=== PATIENT | female | born 2000 ===

== ENCOUNTER 2024-01-14 14:40 | Emergency (ER) | payer MEDICAID, SELFPAY ==
--- NOTE | ~2024-01-14 | CT_ITS ---
EXAMINATION: CT ABDOMEN AND PELVIS WITHOUT CONTRAST CLINICAL INFORMATION: Right flank pain. Dysuria. Hematuria. Vomiting. COMPARISON: None available. TECHNIQUE: Multidetector volumetric imaging was performed from the superior aspect of the liver through the pubic symphysis. Sagittal and coronal reformatted images were obtained on the technologist's workstation. This CT examination was performed using dose optimization techniques as appropriate, variously including the following: *Automated exposure control *Adjustment of mA and/or kV according to patient size (this includes techniques or standardized protocols for targeted exams where dose is matched to indication/reason for exam; i.e. extremities or head) *Use of iterative reconstruction technique DLP: 385 mGy-cm FINDINGS: There is motion limiting the study. LUNG BASES: The visualized lung bases are unremarkable. LIVER, GALLBLADDER, AND BILIARY TREE: The liver is normal in size, shape, and attenuation. No focal hepatic lesion or biliary ductal dilatation is present. The gallbladder is unremarkable with no evidence of radiopaque gallstones, gallbladder wall thickening, or obvious pericholecystic inflammatory changes. PANCREAS: Unremarkable. SPLEEN: Unremarkable. ADRENAL GLANDS: Unremarkable. KIDNEYS AND URETERS: The kidneys are normal in size, shape, and attenuation. No hydronephrosis, hydroureter, or calculi seen. No perinephric stranding. BLADDER: Unremarkable. GASTROINTESTINAL TRACT: The small and large bowel are unremarkable. The appendix is unremarkable. ABDOMINAL WALL: No significant hernia is appreciated. LYMPH NODES: Normal. VASCULAR: Unremarkable. PELVIC VISCERA: Uterus is anteverted. Right adnexal 3 cm cyst. No follow-up imaging recommended. Small volume of fluid in the cul-de-sac. OSSEOUS STRUCTURES: Unremarkable. CT/CT abdomen pelvis wo IV con IMPRESSION: No acute abnormality CT scan abdomen pelvis. Normal kidneys, ureter and bladder. Fleischner guidelines were followed.
[2024-01-14 15:32] VITALS: BP 126/60; PULSE 77; RESP 18; TEMP 36.1; O2SAT 100; BMI 21.0
[2024-01-14 15:57] LABS: MANUAL DIFF FLAG NO
[2024-01-14 15:58] LABS: Basophils Percent Auto 0.3 % (0-2); Eosinophils Absolute Auto 0.1 X10*3/uL (0.0-0.4); Hematocrit 38.8 % (37.0-47.0); Hemoglobin 13.4 g/dl (12.0-16.0); Imm Gran Abs Auto 0.02 X10*3/uL (0.00-0.03); Imm Gran Pct Auto 0.2 % (0.0-0.4); Lymphocytes Absolute Auto 2.3 X10*3/uL (1.2-4.9); Lymphocytes Percent Auto 24.7 % (20-40); Mean Corpuscular HGB Conc 34.5 g/dl (31.0-35.0); Mean Corpuscular Hemoglobin 29.1 pg (27.0-33.0); Mean Corpuscular Volume 84.2 fL (80.0-98.0); Mean Platelet Volume 10.2 fL (9.4-12.3); Monocytes Absolute Auto 0.8 X10*3/uL (0.1-1.2); Monocytes Percent Auto 8.9 % (2-11); Neutrophils Absolute Auto 5.9 x10*3/uL (2.0-8.3); Neutrophils Percent Auto 64.9 % (45-73); Platelet Count 225 X10*3/uL (160-400); Red Blood Count 4.61 X10*6/uL (4.20-5.50); Red Cell Distribution Width 12.2 % (11.0-16.0); White Blood Count 9.1 X10*3/uL (4.8-10.8)
[2024-01-14 15:59] LABS: Appearance Urine Clear; Color Urine Yellow; Glucose Urine UA Negative (Negative); Leukocyte Esterase Urine Trace (Negative); Nitrite Urine Negative (Negative); Specific Gravity - Urine 1.025 (1.005-1.025); UMIC TRIGGER UACC YES; Urine Blood Trace (Negative); Urine Ketones Negative (Negative); Urine Protein Trace mg/dL (Neg-Trace)
[2024-01-14 16:04] LABS: Bacteria Urine 1+ (None Seen); Hyaline Casts Urine 0-2 /LPF (0-2); UACC Culture Trigger YES
[2024-01-14 16:15] LABS: Alanine Aminotransferase 20 U/L (0-31); Albumin Level 4.3 g/dL (3.5-5.0); Alkaline Phosphatase 63 U/L (39-117); Anion Gap 12 (12-20); Aspartate Amino Transferase 19 U/L (5-31); Bilirubin Total 1.1 mg/dL (0.0-1.0); Blood Urea Nitrogen 17 mg/dL (9-16); Calcium 9.1 mg/dL (8.4-10.2); Carbon Dioxide 22 mmol/L (22-29); Chloride 108 mmol/L (96-108); Creatinine Clr Calc Pharmacy 84.2; Estimated Glomerular Filt Rate > 60; Glucose Random 84 mg/dL (60-115); Potassium 4.2 mmol/L (3.3-5.1); Sodium 138 mmol/L (135-145); Total Protein 7.3 g/dL (6.5-8.0)
[2024-01-14 20:21] VITALS: BP 122/59; PULSE 61; RESP 16; TEMP 36.9; O2SAT 100
--- NOTE | 2024-01-14 20:30 | ED_ITS ---
HPI - Female Genitourinary General Chief complaint: Urogenital-Female Stated complaint: Pain upon urination, back pain Time Seen by Provider: 01/14/24 19:31 Source: patient Mode of arrival: ambulatory Limitations: language barrier (Uzbek-speaking coal grader utilized) History of Present Illness HPI Narrative: Patient is a 23 old female who presents to the emergency department for evaluation of concern for urinary tract infection. Reports a urinary tract infection approximately 2 years ago. Her symptoms began approximately 3 days ago, she took 2 doses of ?tetracycline?, an antibiotic that she purchased from her home country; [facility], without any improvement in her symptoms. She is also experiencing urinary frequency, nausea, a single episode of vomiting last night, flank pain, and small amounts of gross hematuria. She reports in the past she is never experienced the flank pain vomiting or hematuria with her prior infections. She denies any history of nephrolithiasis. She denies possibility of , reports having Nexplanon implanted and last menstrual period was 2 days ago. She denies fevers, chills, abdominal pain, vaginal discharge, concern for sexually transmitted infections. Related Data Previous Rx's ?Medication ?Instructions ?Recorded cephalexin 500 mg capsule 500 mg PO BID #20 caps 01/14/24 Allergies Allergy/AdvReac Type Severity Reaction Status Date / Time No Known Allergies Allergy Verified 01/14/24 15:35 Review of Systems 2 Review of Systems: Yes all other systems are reviewed and are negative PMFSH Past Medical History Attestation statement: The following information was validated with the patient. Source: old records reviewed Social History Social History Unable to assess alcohol history related to: Unknown Smoked in Last 30 Days: No Use of substances other than those prescribed or required for medical reasons: Unknown Advance Directives: No Advance Directives Information Provided: No Do you have a plan to hurt others: No Plan Patient : No Physical Exam 2 Vital Signs: Vital Signs: Last Vital Signs Temp 98.4 F 01/14/24 20:21 Pulse 61 01/14/24 20:21 Resp 16 01/14/24 20:21 BP 122/59 L 01/14/24 20:21 Pulse Ox 100 01/14/24 20:21 O2 Del Method Room Air 01/14/24 20:21 BMI result Body Mass Index 21.0 Appearance: Alert.?Oriented to person, place and time. No acute distress.?Normal affect. Eyes: Pupils equal, round and reactive to light.? ENT: Pharynx normal.?? Neck: Normal inspection.? Neck supple.?? CVS: Heart sounds normal. Normal heart rate and rhythm.? Pulses normal.?? Respiratory: No respiratory distress.? Lung sounds clear to auscultation bilaterally?? Abdomen: Soft and non-tender. Normoactive bowel sounds. Positive right CVA tenderness?? Skin: Skin warm and dry.? Normal skin color.? Extremities: No lower extremity edema.? Neuro: Moves all extremities spontaneously. Sensation intact bilaterally. Ambulates with normal steady gait. Course Reevaluation(s) Reevaluation #1: CT of the abdomen and pelvis without acute pathology. Will discharge patient home with course of antibiotics for management urinary tract infection, small early pyelonephritis. Discussed strict return precautions. All questions answered. Stable for discharge. Medications Administered Discontinued Medications Generic Name Dose Route Start Last Admin Trade Name Freq PRN Reason Stop Dose Admin Ibuprofen 600 mg 01/14/24 20:20 01/14/24 20:53 Ibuprofen 600 Mg Tablet PO 01/14/24 20:21 600 mg ONCE ONE Administration Medical Decision Making Medical Decision Making [facility] Narrative: Patient is a 23-year-old female with past medical history of urinary tract infection presenting to emergency department for evaluation of symptoms with nausea vomiting and flank pain as per HPI. Overall she appears well, nontoxic, afebrile. She is without tachycardia tachypnea or hypoxia. Her abdominal examination is benign. She does have a mild right-sided tenderness to the CVA, reviewed labs and urinalysis obtained prior to my assumption of care. She is without leukocytosis or anemia, no electrolyte derangement, no ANDREY, transaminases within normal range. HCG is negative. Urinalysis with microscopic hematuria and pyuria, concerning for urinary tract infection versus pyelonephritis versus ureteral calculi versus hydronephrosis. She is amenable to ibuprofen administration. Will obtain CT of the abdomen pelvis for further evaluation. At this time she is tolerating oral intake Differential Diagnosis Differential Diagnoses: The differential diagnosis associated with the presentation includes (See narrative above) Admission/Observation Consideration of admission/observation: Escalation of care including admission/observation considered (See narrative above) Lab Data [facility] Lab Attestation statement: I reviewed the patient's lab results. (See narrative above) 01/14/24 15:52 01/14/24 15:52 Labs: Lab Results 01/14/24 Range/Units 15:52 WBC 9.1 (4.8-10.8) X10*3/uL RBC 4.61 (4.20-5.50) X10*6/uL Hgb 13.4 (12.0-16.0) g/dl Hct 38.8 (37.0-47.0) % MCV 84.2 (80.0-98.0) fL MCH 29.1 (27.0-33.0) pg MCHC 34.5 (31.0-35.0) g/dl RDW 12.2 (11.0-16.0) % Plt Count 225 (160-400) X10*3/uL MPV 10.2 (9.4-12.3) fL Immature Gran % (Auto) 0.2 (0.0-0.4) % Neut % (Auto) 64.9 (45-73) % Lymph % (Auto) 24.7 (20-40) % Jenkins % (Auto) 8.9 (2-11) % Eos % (Auto) 1.0 (0-4) % Baso % (Auto) 0.3 (0-2) % Lymph # (Auto) 2.3 (1.2-4.9) X10*3/uL Jenkins # (Auto) 0.8 (0.1-1.2) X10*3/uL Eos # (Auto) 0.1 (0.0-0.4) X10*3/uL Baso # (Auto) 0.0 (0.0-0.2) X10*3/uL Abs Immat Gran (auto) 0.02 (0.00-0.03) X10*3/uL Absolute Neuts (auto) 5.9 (2.0-8.3) x10*3/uL Absolute Nucleated RBC 0.000 (0.0-0.012) X10*3/uL Nucleated RBC % (auto) 0.0 (0.0-0.2) /100WBC Sodium 138 (135-145) mmol/L Potassium 4.2 (3.3-5.1) mmol/L Chloride 108 (96-108) mmol/L Carbon Dioxide 22 (22-29) mmol/L Anion Gap 12 (12-20) BUN 17 H (9-16) mg/dL Creatinine 0.74 (0.5-1.4) mg/dL Estim Creat Clear Calc 84.2 Estimated GFR > 60 Random Glucose 84 (60-115) mg/dL Calcium 9.1 (8.4-10.2) mg/dL Total Bilirubin 1.1 H (0.0-1.0) mg/dL AST 19 (5-31) U/L ALT 20 (0-31) U/L Alkaline Phosphatase 63 (39-117) U/L Total Protein 7.3 (6.5-8.0) g/dL Albumin 4.3 (3.5-5.0) g/dL Beta HCG, Quant < 2 mIU/mL Urine Color Yellow Urine Appearance Clear Urine pH 7.0 (5.0-9.0) Ur Specific [place] 1.025 (1.005-1.025) Urine Protein Trace (Neg-Trace) mg/dL Urine Glucose (UA) Negative (Negative) mg/dL Urine Ketones Negative (Negative) mg/dL Urine Blood Trace H (Negative) Urine Nitrite Negative (Negative) Ur Leukocyte Esterase Trace H (Negative) Urine RBC 6-10 H (0-2) /HPF Urine WBC 11-20 H (0-5) /HPF Ur Squamous Epith Cells 6-10 (0-2) /HPF Urine Bacteria 1+ (None Seen) Hyaline Casts 0-2 (0-2) /LPF Independent Interpretation I performed an independent interpretation of an: CT Scan (No nephrolithiasis, no hydronephrosis) Radiology Impression Discussion of test interpretation with radiology: I have reviewed the radiologist's reading. Radiologist Impression: CT/CT abdomen pelvis wo IV con IMPRESSION: No acute abnormality CT scan abdomen pelvis. Normal kidneys, ureter and bladder. Independent Historian Clinical information obtained from an independent historian. History obtained from or confirmed by: Spouse (Present who confirms history) Prescription Management I considered prescription management with: Antibiotic Discharge Plan Discharge Clinical Impression: Urinary tract infection Patient Disposition: Home, Self-Care Instructions: Urinary Tract Infection in Women (ED) Additional Instructions: Your CT scan today does not show any evidence of kidney stone or significant changes to kidneys. This is very reassuring. A prescription for an antibiotic was sent to your pharmacy to treat urinary tract infection. Please be sure that you are staying well hydrated, drinking plenty of fluids. You should follow-up with your primary care provider within the next 3 days. You can return back to emergency department any new or worsening symptoms or concerns. Prescriptions: New cephalexin 500 mg capsule 500 mg PO BID Qty: 20 0RF Referrals: Physician,None [Primary Care Provider] - Print Language: Uzbek
[2024-01-14 20:53] LABS: HCG Quantitative < 2 mIU/mL
[2024-01-14] MEDS: Ibuprofen 600 MG TABLET PO (20:53)
[2024-01-14 22:48] VITALS: BP 118/68; PULSE 61; RESP 18; TEMP 37; O2SAT 100
[2024-01-14 22:53] VITALS: BP 118/68; PULSE 61; RESP 18; TEMP 37; O2SAT 100
== END 2024-01-14 22:53 | disposition home or self-care (01) ==
PROVIDERS: Nurse Practitioner Family; Emergency Provider Emergency Medicine
DX: N39.0 Urinary tract infection, site not specified (principal); R10.9 Unspecified abdominal pain
CPT/HCPCS: 36415; 74176; 80053; 81001; 81003; 84702; 85025; 87086; 99284

== ENCOUNTER 2025-06-17 10:03 | Outpatient (REF) | payer MEDICAID, SELFPAY ==
--- OUTSIDE RECORDS SUMMARY | 2025-06-15 14:00 | XMS_ITS | Encounter Summary ---
Author Organization [id number] Address [address] [place] [address] Care Team Providers Care Warehouse Insulation Worker Name Role Phone Esme Clarosily GOSIA Primary Care Provider [phone] Reason for Visit * Reason Comments Scaling And Root Planing UR, LR Encounter Details Date Type Department Care Team ([facility] st Contact Info) Description 06/15/2025 2:00 PM EDT Office Visit [facility] [address] [place] [address] Cathi Shaw Dental plaque (Primary Dx); Subgingival dental calculus Social History Tobacco Use Types Packs/Day Years Used Date Smoking Tobacco: Never Smokeless Tobacco: Never Alcohol Use Standard Drinks/Week Comments Never 0 (1 standard drink = 0.6 oz pur e alcohol) Comments Unknown Sex and Gender Information Value Date Recorded Sex Assigned at Female 06/23/2024 2:31 PM EDT Legal Sex Female 2:40 AM EST Gender Identity Female 06/23/2024 2:31 PM EDT Sexual Orientation Straight 06/23/2024 2: 31 PM EDT documented as of this encounter Last Filed Vital Signs Vital Sign Reading Time Taken Comments Blood Pressure 120/70 06/15/2025 2:00 PM EDT Pulse - - Temperature - - Respiratory Rate - - Oxygen Saturation - - Inhaled Oxygen Concentration - - Weight - - Height - - Body Mass Index - - documented in this encounter Progress Notes * Cathi Shaw - 06/15/2025 2:00 PM EDT Patient ID: Mariam Carrero is a 25 y.o. female. Time Out: Timeout Date: 06/15/25, Timeout Time: 1359 (Dental SRP Adult) Location: [facility] Tooth: UR and LR Procedure: Scaling and Root Planing Verified the above with patient, internal medicine physician assistant, and provider. Confirmed via patient's chart, intraorally and by radiographs. Emission Specialist: not applicable Medical Hx: Vitals: Blood pressure 120/70. Medications, Med Hx reviewed with patient and updated in chart. Treatment Provided Dental procedures in this visit D4342 - PERIODONTAL SCALING AND ROOT PLANING - 1 TO 3 TEETH PER QUADRANT LR (Completed) Service provider: Cathi Shaw Billing provider: Jigar Fair DDS D4342 - PERIODONTAL SCALING AND ROOT PLANING - 1 TO 3 TEETH PER QUADRANT UR (Completed) Service provider: Cathi Shaw Billing provider: Jigar Fair DDS D1330 - ORAL HYGIENE INSTRUCTIONS (Completed) Service provider: Cathi Shaw Billing provider: Jigar Fair DDS [id number] - CASE PRESENTATION, DETAILED AND EXTENSIVE TREATMENT PLANNING (Completed) Service provider: Cathi Shaw Billing provider: Jigar Fair DDS Topical: 20% Benzocaine Anesthesia: 0 Number of Cartridges: 0 Injection Type: N/A Confirmed profound anesthesia. Oral Cancer Screening: No lesions Head/Neck Exam: No Lesions Instruments Used: Ultrasonic Scalers, Hand Scalers, and floss Fluoride: N/A Calculus: Moderate, Generalized, and Subgingival Plaque: Light and Generalized Stain: None Bleeding: Moderate and Generalized Gingiva: Edematous and Erythematous [place]: Poor Oral hygiene instructions provided to patient including brushing technique and flossing. Recommendations: [place] two times daily, modified blanco technique, Floss daily, Electric toothbrush, Soft bristle toothbrush, [place] Tongue, Anti-sensitivity toothpaste Recall Frequency: 6 mo NV: 6mrc Hygienist: Catih Shaw RDH documented in this encounter Plan of Treatment Upcoming Encounters Date Type Department Care Team (Late st Contact Info) Description 12/21/2025 10:15 AM EDT Office Visit [facility] [address] [place] [address] Cathi Shaw Scheduled Orders Name Type Priority Associated Diagnoses Orde r Schedule PROPHYLAXIS - ADULT Dental Routine 1 Occ urrences starting 06/15/2025 documented as of this encounter Procedures Procedure Name Priority Date/Time Associated Diagnosis Comments UR PERIODONTAL SCALING AND ROOT PLANING - 1 TO 3 TEETH PER QUADRANT Routine 06/15/2025 2:00 PM EDT Dental plaque Subgingival dental calculus LR PERIODONTAL SCALING AND ROOT PLANING - 1 TO 3 TEETH PER QUADRANT Routine 06/15/2025 2:00 PM EDT Dental plaque Subgingival dental calculus ORAL HYGIENE INSTRUCTIONS Routine 06/15/2025 2:00 PM EDT Dental plaque Subgingival dental calculus CASE PRESENTATION, DETAILED AND EXTENSIVE TREATMENT PLANNING Routine 06/15/2025 2:00 PM EDT documented in this encounter Visit Diagnoses Diagnosis Dental plaque- Primary Accretions on teeth Subgingival dental calculus Accretions on teeth documented in this encounter Care Teams Warehouse Insulation Worker Relationship Specialty Start Date End Date Yumiko Claros NP [address] [place] [id number] PCP - General Family Medicine 03/30/25 documented as of this encounter
--- OUTSIDE RECORDS SUMMARY | 2025-06-17 09:00 | XMS_ITS | Encounter Summary ---
Author Organization [employer] Address [address] [place] [address] [address] [place] [address] Care Team Providers Care Hot Mill Roller Name Role Phone Yumiko Claros NP Primary Care Provider [phone] Reason for Referral * Consultation (Routine) - Pending Review Specialty Diagnoses / Procedures Referred By Ghislaine thomas Referred To Contact Physical Therapy Diagnoses Chronic low back pain, unspecified back pain laterality, unspecified whether sciatica present Chronic neck and back pain Yumiko Claros NP [address] [place] [address] Phone: tel: fax: Referral ID Status Reason Start Date Expiration Date Visits Requested Visits Authorized [id number] Pending Review Specialty Services Required 06/17/2025 06/17/2026 1 1 * Consultation (Routine) - Authorized Specialty Diagnoses / Procedures Referred By Ghislaine thomas Referred To Contact Behavioral Health Diagnoses Routine general medical examination at a health care facility Procedures Referral to Behavioral Health Yumiko Claros NP [address] [place] [address] Phone: tel: fax: Referral ID Status Reason Start Date Expiration Date Visits Requested Visits Authorized [id number] Authorized Specialty Services Required 06/17/2025 06/17/2026 1 1 Reason for Visit * Reason Comments Transfer patient Encounter Details Date Type Department Care Team ([facility] st Contact Info) Description 06/17/2025 9:00 AM EDT Office Visit [facility] MEDICINE [address] [place] [address] Yumiko Claros, GOSIA [address] [place] [address] Routine general medical examination at a health care facility (Primary Dx); Exposure to communicable disease; Encounter for immunization; Chronic low back pain, unspecified back pain laterality, unspecified whether sciatica present; Chronic neck and back pain; Ganglion cyst Social History Tobacco Use Types Packs/Day Years Used Date Smoking Tobacco: Never Smokeless Tobacco: Never Alcohol Use Standard Drinks/Week Comments Never 0 (1 standard drink = 0.6 oz pur e alcohol) Depression Answer Date Recorded Patient Health Questionnaire-9 Score 11 06/17/2025 Patient Health Questionnaire-9 Score 11 06/17/2025 Last PHQ-9: Questionnaire Data Not on file 1 Housing Stability Answer Date Recorded What is your housing situation today? I have amena brett 06/17/[address] you li ve. Do you have problems with any of the following? None of the above 06/17/2025 Food Insecurity Answer Date Recorded Within the past 12 months, y ou worried that your food would run out before you got money to buy more: Never True 06/17/2025 Within the past 12 months,th e food you bought just didn't last and you didn't have enough money to get more: Never True 11/2024 Transportation Answer Date Recorded In the past 12 months, has l ack of transportation kept you from medical appts, meetings, work or from getting things needed for daily living? No 06/17/2025 Utilities Answer Date Recorded In the past 12 months, has t he electric, gas, oil or water company threatened to shut off services in your home? No 06/17/2025 Depression Answer Date Recorded Patient Health Questionnaire-2 Score 2 06/17/2025 Internet Access Answer Date Recorded Internet Access Q1 Yes 06/17/2025 Internet Access Q2 Not on file 06/17/2025 Comments No Sex and Gender Information Value Date Recorded Sex Assigned at Female 06/23/2024 2:31 PM EDT Legal Sex Female 2:40 AM EST Gender Identity Female 06/23/2024 2:31 PM EDT Sexual Orientation Straight 06/23/2024 2: 31 PM EDT documented as of this encounter Last Filed Vital Signs Vital Sign Reading Time Taken Comments Blood Pressure 122/74 06/17/2025 9:04 AM EDT Pulse 80 06/17/2025 9:04 AM EDT Temperature 36.8 C (98.2 F) 06/17/2025 9:04 AM EDT Respiratory Rate 16 06/17/2025 9:04 AM EDT Oxygen Saturation - - Inhaled Oxygen Concentration - - Weight 52.7 kg (116 lb 3.2 oz) 06/17/2025 9:04 A M EDT Height 154.6 cm (5' 0.85 ) 06/17/2025 9:04 AM ED T Body Mass Index 22.07 06/17/2025 9:04 AM EDT documented in this encounter Functional Status * Over the past 2 weeks, how often have you been bothered by any of the following problems? Question Answer Date of Assessment Author Patient Health Questionnaire-2 Score 2 06/17/2025 9:12 AM EDT Allison Gunn MA * Little interest or pleasure in doing things Answer Date of Assessment Author Several days 06/17/2025 9:12 AM EDT Allison Dow MA * Feeling down, depressed, or hopeless Answer Date of Assessment Author Several days 06/17/2025 9:12 AM EDT Allison Dow MA * Trouble falling or staying asleep, or sleeping too much Answer Date of Assessment Author Several days 06/17/2025 9:12 AM EDT Allison Dow MA * Feeling tired or having little energy Answer Date of Assessment Author More than half the days 06/17/2025 9:12 AM EDT Allison Morris MA * Poor appetite or overeating Answer Date of Assessment Author Nearly every day 06/17/2025 9:12 AM EDT Allison Berumen MA * Feeling bad about yourself - or that you are a failure or have let yourself or your family down Answer Date of Assessment Author Several days 06/17/2025 9:12 AM EDT Allison Dow MA * Trouble concentrating on things, such as reading the newspaper or watching television Answer Date of Assessment Author Several days 06/17/2025 9:12 AM Allison Duarte MA * Moving or speaking so slowly that other people could have noticed? Or the opposite - being so fidgety or restless that you have been moving around a lot more than usual. Answer Date of Assessment Author Not at all 06/17/2025 9:12 AM Allison Duarte MA * Thoughts that you would be better off or hurting yourself in some way Answer Date of Assessment Author Several days 06/17/2025 9:12 AM Allison Duarte MA * Patient Health Questionnaire-9 Score Answer Date of Assessment Author 11 06/17/2025 9:12 AM Allison Duarte MA * How difficult have these problems made it for you to do your work, take care of things at home, or get along with other people? Answer Date of Assessment Author Somewhat difficult 06/17/2025 9:12 AM EDT Allison Frey MA * Over the last 2 weeks, how often have you been bothered by any of the following problems? Question Answer Date of Assessment Author Feeling nervous, anxious, or on edge 3 06/17/2025 9:12 AM Allison Scott MA Not being able to stop or control worrying 3 06/17/2025 9:12 AM Allison Scott MA Worrying too much about different things 2 06/17/2025 9:12 AM Allison Scott MA Trouble relaxing 3 06/17/2025 9:12 AM EDT Allison Morris MA Being so restless that it is hard to sit still 3 06/17/2025 9:12 AM Allison Scott MA Becoming easily annoyed or irritable 2 06/17/2025 9:12 AM Allison Scott MA Feeling afraid as if something awful might happen 2 06/17/2025 9:12 AM EDT Allison Berumen MA NIKIA-7 Total Score 18 06/17/2025 9:12 AM EDT Allison Gunn MA documented as of this encounter Miscellaneous Notes * Assessment & Plan Note - Yumiko Claros NP - 06/17/2025 9:00 AM EDTAssociated Problem(s): Routine general medical examination at a health care facility Orders: Referral to Behavioral Health; Future HIV-1/2 Antigen and Antibodies, Fourth Generation, with Reflexes; Future Hepatitis C Antibody with Reflex to HCV, RNA, Quantitative, Real-Time PCR; Future RPR (Monitor) with Reflex to Titer; Future Chlamydia/N. Gonorrhoeae, PCR, Urine * Assessment & Plan Note - Yumiko Claros NP - 06/17/2025 9:00 AM EDTAssociated Problem(s): Exposure to communicable disease Orders: HIV-1/2 Antigen and Antibodies, Fourth Generation, with Reflexes; Future Hepatitis C Antibody with Reflex to HCV, RNA, Quantitative, Real-Time PCR; Future RPR (Monitor) with Reflex to Titer; Future Chlamydia/N. Gonorrhoeae, PCR, Urine * Assessment & Plan Note - Yumiko Claros NP - 06/17/2025 9:00 AM EDTAssociated Problem(s): Encounter for immunization Orders: FLU VACCINE TRIVALENT [id number] ([employer]) 19 yrs + * Assessment & Plan Note - Yumiko Claros NP - 06/17/2025 9:00 AM EDTAssociated Problem(s): Chronic low back pain Orders: Referral to Physical Therapy; Future * Assessment & Plan Note - Yumiko Claros NP - 06/17/2025 9:00 AM EDTAssociated Problem(s): Chronic neck and back pain Orders: Referral to Physical Therapy; Future * Assessment & Plan Note - Yumiko Claros NP - 06/17/2025 9:00 AM EDTAssociated Problem(s): Ganglion cyst documented in this encounter Plan of Treatment Upcoming Encounters Date Type Department Care Team (Late st Contact Info) Description 12/21/2025 10:15 AM EDT Office Visit [facility] ADULT DENTAL [address] [place] [address] Cathi Shaw Scheduled Orders Name Type Priority Associated Diagnoses Orde r Schedule HIV-1/2 Antigen and Antibodies, Fourth Generation, with Reflexes Lab Routine Routine general medical examination at a health care facility Exposure to communicable disease Expected: 06/17/2025 (Approximate), Expires: 06/17/2026 Hepatitis C Antibody with Reflex to HCV, RNA, Quantitative, Real-Time PCR Lab Routine Routine general medical examination at a health care facility Exposure to communicable disease Expected: 06/17/2025, Expires: 06/17/2026 RPR (Monitor) with Reflex to Titer Lab Routine Routine general medical examination at a health care facility Exposure to communicable disease Expected: 06/17/2025, Expires: 06/17/2026 Chlamydia/N. Gonorrhoeae, PCR, Urine Lab Routine Routine general medical examination at a health care facility Exposure to communicable disease Ordered: 06/17/2025 Scheduled Referrals Name Type Priority Associated Diagnoses Orde r Schedule Referral to Physical Therapy Outpatient Referral Routine Chronic low back pain, unspecified back pain laterality, unspecified whether sciatica present Chronic neck and back pain Expected: 06/17/2025 (Approximate), Expires: 06/17/2026 documented as of this encounter Visit Diagnoses Diagnosis Routine general medical examination at a health care facility- Primary Exposure to communicable disease Contact with or exposure to unspecified communicable disease Encounter for immunization Chronic low back pain, unspecified back pain laterality, unspecified whether sciatica present Chronic neck and back pain Ganglion cyst Unspecified ganglion documented in this encounter Additional Health Concerns Assessment Noted Time PHQ-9 Depression Total Score: 11 025 9:12 AM EDT documented as of this encounter Care Teams Hot Mill Roller Relationship Specialty Start Date End Date Yumiko Claros NP [address] [place] [address] PCP - General Family Medicine 03/30/25 documented as of this encounter
--- OUTSIDE RECORDS SUMMARY | 2025-06-17 10:46 | XMS_ITS | Encounter Summary ---
Author Organization [employer] Address [address] [facility] [address]t [place] [address] Care Team Providers Care Pouring Crane Operator Name Role Phone Claudette Cespedes SECTION MAINTAINER Primary Care Provider [phone] Yumiko Claros SECTION MAINTAINER Primary Care Provider [phone] Reason for Visit * Reason Onset Date Comments running late 12/22/2024 Encounter Details Date Type Department Care Team (Late st Contact Info) Description 12/22/2024 Telephone [facility] ADULT DENTAL [address] [place] [address] Michell Ugarte, DDS [address] [place] [address] running late Social History Tobacco Use Types Packs/Day Years [...] PM EDT documented as of this encounter Miscellaneous Notes * Telephone Encounter - Daniela Masterss - 12/22/2024 8:46 AM EDT Mariam Carrero patient called in stating that she is running about 15 minutes late. Informed patient of 10 minute leeway and anything after that appt may need to be rescheduled. Patient understood she said she is still going to try and make it and go from there. documented in this encounter Plan of Treatment Upcoming Encounters Date Type Department Care Team (Late st Contact Info) Description 12/21/2025 10:15 AM EDT Office Visit [facility] ADULT DENTAL [address] [place] [address] Cathi Shaw documented as of this encounter Visit Diagnoses Not on filedocumented in this encounter Care Teams Pouring Crane Operator Relationship Specialty Start Date End Date Claudette Cespedes NP [address] [place] [address] PCP - General Family Medicine 11/24/24 03/29/25 Yumiko Claros NP [address] [place] [address] PCP - General Family Medicine 03/30/25 documented as of this encounter
--- OUTSIDE RECORDS SUMMARY | 2025-06-17 10:46 | XMS_ITS | Encounter Summary ---
Author Organization [employer] Address [address] [facility] [address] [place] [address] Care Team Providers Care Director Of Midwifery/Staff Midwife Name Role Phone Yumiko Claros GOSIA Primary Care Provider [phone] Encounter Details Date Type Department Care Team (Latest Contact Info) Description 06/17/2025 Travel Social History Tobacco Use Types Packs/Day Years [...] your housing situation today? I have amena west 06/17/[address] you li [...] PM EDT documented as of this encounter Functional Status * Over the [...] Assessment Author Several days 06/17/2025 9:12 AM LGT Allison Dow MA * Feeling tired or [...] Assessment Author Several days 06/17/2025 9:12 AM LGT Allison Dow MA * Trouble concentrating on things, such as reading the newspaper or watching television Answer Date of Assessment Author Several days 06/17/2025 9:12 AM EDT Allison Dow MA * Moving or speaking so slowly that other people could have noticed? Or the opposite - being so fidgety or restless that you have been moving around a lot more than usual. Answer Date of Assessment Author Not at all 06/17/2025 9:12 AM EDT Allison Dow MA * Thoughts that you would be better off or hurting yourself in some way Answer Date of Assessment Author Several days 06/17/2025 9:12 AM EDT Allison Dow MA * Patient Health Questionnaire-9 Score Answer Date of Assessment Author 11 06/17/2025 9:12 AM EDT Allison Dow MA * How difficult have these problems [...] or on edge 3 06/17/2025 9:12 AM EDT Allison Gunn MA Not being able to stop or control worrying 3 06/17/2025 9:12 AM EDT Allison Gunn MA Worrying too much about different things 2 06/17/2025 9:12 AM EDT Allison Gunn MA Trouble relaxing 3 06/17/2025 9:12 AM EDT Allison Morris MA Being so restless that it is hard to sit still 3 06/17/2025 9:12 AM EDT Allison Gunn MA Becoming easily annoyed or irritable 2 06/17/2025 9:12 AM EDT Allison Gunn MA Feeling afraid as if something awful might happen 2 06/17/2025 9:12 AM EDT Allison Berumen MA NIKIA-7 Total Score 18 06/17/2025 9:12 AM LGT Allison Gunn MA documented as of this encounter Plan of Treatment Upcoming Encounters Date Type Department Care Team (Late st Contact Info) Description 12/21/2025 10:15 AM EDT Office Visit [facility] ADULT DENTAL [address] [place] [address] Cathi Shaw documented as of this encounter Visit Diagnoses Not on filedocumented in this encounter Additional Health Concerns Assessment Noted Time PHQ-9 Depression Total Score: 11 025 9:12 AM EDT documented as of this encounter Care Teams Director Of Midwifery/Staff Midwife Relationship Specialty Start Date End Date Yumiko Claros NP [address] [place] [address] PCP - General Family Medicine 03/30/25 documented as of this encounter
--- OUTSIDE RECORDS SUMMARY | 2025-06-17 10:46 | XMS_ITS | Encounter Summary ---
Author Organization [employer] Address [address] [facility] [address] [place] [address] Care Team Providers Care Automation Sales Manager Name Role Phone Yumiko Claros NP Primary Care Provider [phone] Reason for Visit * Reason Onset Date Comments CHARTPREP 06/16/2025 Encounter Details Date Type Department Care Team ([facility] st Contact Info) Description 06/16/2025 Telephone [facility] MEDICINE [address] [place], [place] [id number] Yumiko Claros NP [address] [place] [address] CHARTPREP Social History Tobacco Use Types Packs/Day Years [...] Access Q2 Not on file 06/17/2025 Comments Unknown Sex and Gender Information Value Date Recorded Sex Assigned at Female 06/23/2024 2:31 PM EDT Legal Sex Female 2:40 AM EST Gender Identity Female 06/23/2024 2:31 PM EDT Sexual Orientation Straight 06/23/2024 2: 31 PM EDT documented as of this encounter Miscellaneous Notes * Telephone Encounter - Allison Moore MA - 06/16/2025 10:28 AM EDT Chart Prep Labs: done Images: not applicable Referrals: not applicable Vaccines due: Covid, Flu, Tdap, Hep B, and HPV Screenings: pap smear Overdue care gaps: SBIRT, SDOH, PHQ-9, NIKIA-7, Oral health screening, Disability screen, and Tobacco documented in this encounter Plan of Treatment Upcoming Encounters Date Type Department Care Team (Late st Contact Info) Description 12/21/2025 10:15 AM EDT Office Visit [facility] ADULT DENTAL [address] [place] [address] Cathi Shaw documented as of this encounter Visit Diagnoses Not on filedocumented in this encounter Care Teams Automation Sales Manager Relationship Specialty Start Date End Date Yumiko Claros NP [address] [place] [address] PCP - General Family Medicine 03/30/25 documented as of this encounter
--- OUTSIDE RECORDS SUMMARY | 2025-06-17 10:46 | XMS_ITS | Encounter Summary ---
Author Organization [employer] Address [address] [facility] [address] [place] [address] Care Team Providers Care Pharmacy Informatics Manager Name Role Phone Tacosdelgado Claudette MACHINE LEATHER TRIMMER Primary Care Provider [phone] Yumiko Claros MACHINE LEATHER TRIMMER Primary Care Provider [phone] Reason for Visit * Reason Onset Date Comments appt 06/29/2024 Encounter Details Date Type Department Care Team ([facility] st Contact Info) Description 06/29/2024 Telephone [facility] ADULT DENTAL [address] [place] [address] Jigar Fair DDS [address] [place] [address] appt Social History Tobacco Use Types Packs/Day Years [...] Miscellaneous Notes * Telephone Encounter - Daniela Lilly - 06/29/2024 9:20 AM EDT Patient called in checking in on status of appt for extraction. Patient has been informed that appt is active requested and she will get a call from office to schedule appt. documented in this encounter Plan of Treatment Upcoming Encounters Date Type Department Care Team (Late st Contact Info) Description 12/21/2025 10:15 AM EDT Office Visit [facility] ADULT DENTAL [address] [place] [address] Cathi Shaw documented as of this encounter Visit Diagnoses Not on filedocumented in this encounter Care Teams Pharmacy Informatics Manager Relationship Specialty Start Date End Date Claudette Cespedes NP [address] [place] [address] PCP - General Family Medicine 11/24/24 03/29/25 Yumiko Claros NP [address] [place] [address] PCP - General Family Medicine 03/30/25 documented as of this encounter
--- OUTSIDE RECORDS SUMMARY | 2025-06-17 10:46 | XMS_ITS | Clinical Summary ---
Author Organization [employer] Address [address] [facility] [address] [place] [address] Care Team Providers Care Mirror Machine Feeder Name Role Phone HarlanYumiko GOSIA Primary Care Provider [phone] Allergies Active Allergy Reactions Criticality Noted Date Comments Baclofen Rash High 12/22/2024 Medications acetaminophen (Tylenol) 500 MG tablet Take 1 tablet (500 mg) by mouth every 6 (six) hours if needed for mild pain for up to 20 doses. 20 tablet 4 06/17/20 Discontinu ed(Therapy completed) baclofen (Lioresal) 10 MG tabletIndicatio ns:Chronic right-sided low back pain with bilateral sciatica Take 1 tablet (10 mg) by mouth 3 times daily for 14 days. 42 tablet 5 06/17/20 Discontinu ed(Therapy completed) omeprazole (PriLOSEC) [address] capsuleIndicati ons:Chronic right-sided low back pain with bilateral sciatica Take 1 capsule (20 mg) by mouth before breakfast for 28 days. Do not crush or chew. 28 capsule 5 06/17/20 Discontinu ed(Therapy completed) Xulane 150-35 MCG/24HR APPLY 1 PATCH TO CLEAN DRY SKIN ONCE A WEEK ON THE SAME DAY FOR 3 WEEKS. REMOVE FOR 1 WEEK, THEN RESTART CYCLE. 5 06/17/20 Discontinu ed(Therapy completed) cephalexin (Keflex) 500 MG capsule Take 1 capsule by mouth 2 times daily. 4 06/17/20 Discontinu ed(Therapy completed) Active Problems Problem Noted Date Diagnosed Date Chronic neck and back pain 06/17/2025 Assessment & Plan (06/17/2025 9:53 AM EDT): Orders: Referral to Physical Therapy; Future Encounter for immunization 06/17/2025 Assessment & Plan (06/17/2025 9:53 AM EDT): Orders: FLU VACCINE TRIVALENT [id number] (Fluarix) 19 yrs + Chronic low back pain 06/17/2025 Assessment & Plan (06/17/2025 9:53 AM EDT): Orders: Referral to Physical Therapy; Future Exposure to communicable disease 06/17/2025 Assessment & Plan (06/17/2025 9:53 AM EDT): Orders: HIV-1/2 Antigen and Antibodies, Fourth Generation, with Reflexes; Future Hepatitis C Antibody with Reflex to HCV, RNA, Quantitative, Real-Time PCR; Future RPR (Monitor) with Reflex to Titer; Future Chlamydia/N. Gonorrhoeae, PCR, Urine Routine general medical exam ination at a health care facility 06/17/2025 Assessment & Plan (06/17/2025 9:53 AM EDT): Orders: Referral to Behavioral Health; Future HIV-1/2 Antigen and Antibodies, Fourth Generation, with Reflexes; Future Hepatitis C Antibody with Reflex to HCV, RNA, Quantitative, Real-Time PCR; Future RPR (Monitor) with Reflex to Titer; Future Chlamydia/N. Gonorrhoeae, PCR, Urine Ganglion cyst 06/17/2025 Assessment & Plan (06/17/2025 9:53 AM EDT): Alveolitis of jaw 07/23/2024 Severe dental caries 06/23/2024 Non-restorable tooth 06/23/2024 Encounters Date Type Department Care Team Description 06/17/2025 9:00 AM EDT Office Visit [facility] [address] [place] [address] Yumiko Claros NP Routine general medical examination at a health care facility (Primary Dx); Exposure to communicable disease; Encounter for immunization; Chronic low back pain, unspecified back pain laterality, unspecified whether sciatica present; Chronic neck and back pain; Ganglion cyst 06/17/2025 Travel 06/16/2025 Telephone [facility] [address] [place] [address] Yumiko Claros NP CHARTPREP 06/15/2025 2:00 PM EDT Office Visit [facility] [address] [place] [address] Cathi Shaw Dental plaque (Primary Dx); Subgingival dental calculus 06/10/2025 Patient Outreach [facility] [address] [place], [place] [id number] Yumiko Claros NP Pre-visit Planning (SDOH unable to complete) from Last 3 Months Immunizations Immunization Administration Dates Next Due Influenza, seasonal, injectable, preservative fr ee 06/17/2025 Social History Tobacco Use Types Packs/Day Years Used Date Smoking Tobacco: Never Smokeless Tobacco: Never Tobacco Cessation:Counseling Given: Not Answered Alcohol Use Standard Drinks/Week Comments Never 0 [...] Orientation Straight 06/23/2024 2: 31 PM EDT Last Filed Vital Signs Vital Sign Reading Time Taken Comments Blood Pressure 122/74 06/17/2025 9:04 AM EDT Pulse 80 06/17/2025 9:04 AM EDT Temperature 36.8 C (98.2 F) 06/17/2025 9:04 AM EDT Respiratory Rate 16 06/17/2025 9:04 AM EDT Oxygen Saturation 99% 11/24/2024 9:52 AM EDT Inhaled Oxygen Concentration - - Weight 52.7 kg (116 lb 3.2 oz) 06/17/2025 9:04 A M EDT Height 154.6 cm (5' 0.85 ) 06/17/2025 9:04 AM ED T Body Mass Index 22.07 06/17/2025 9:04 AM EDT Plan of Treatment Upcoming Encounters Date Type Department Care Team (Late st Contact Info) Description 12/21/2025 10:15 AM EDT Office Visit [facility] [address] [place] [address] Cathi Shaw Health Maintenance Due Date Last Done Comments HIV Screening 1999 Family Planning (PISQ) 2014 HPV Vaccines (1 - 3-dose series) 2014 Hepatitis C Screening 2017 DTaP/Tdap/Td Vaccines (1 - Tdap) 2018 Hepatitis B Vaccines (1 of 3 - 19+ 3-dose series) 2018 Pap Smear 2020 Dental Oral Exam 02/09/2025 08/11/2024 Dental Prophylaxis 02/09/2025 08/11/2024 COVID-19 Vaccine ( - 2023-2 5 season) 2025 Dental X-Ray: Bitewings 08/12/2025 08/11/2024 Depression Monitoring 12/16/2025 06/17/2025 , 06/17/2025 Alcohol/Substance Use Screening 06/17/2026 06/17/2025 Disability Screening 06/17/2026 06/17/2025 SDOH Screening 06/17/2026 06/17/2025 Tobacco Screening 06/17/2026 06/17/2025 Dental X-Ray: Full Mouth 08/12/2027 08/11/2024 Zoster Vaccines (1 of 2) 2049 RSV Patients and Patients Aged 60 years or older (1 - 1-dose 75+ series) 2074 Influenza Vaccine Completed 06/17/2025 HIB Vaccines Aged Out No longer eligi ble based on patient's age to complete this topic Hepatitis A Vaccines Aged Out No long er eligible based on patient's age to complete this topic IPV Vaccines Aged Out No longer eligi ble based on patient's age to complete this topic Meningococcal B Vaccine Aged Out No l onger eligible based on patient's age to complete this topic Meningococcal Vaccine Aged Out No reji simi eligible based on patient's age to complete this topic Pneumococcal Vaccine: Pediatrics (0 to 5 Years) and At-Risk Patients (6 to 49) Years Aged Out No longer eligible b ased on patient's age to complete this topic RSV under 20 months Aged Out No longe r eligible based on patient's age to complete this topic Rotavirus Vaccines Aged Out No longer eligible based on patient's age to complete this topic Procedures Procedure Name Priority Date/Time Associated Diagnosis Comments CASE PRESENTATION, DETAILED AND EXTENSIVE TREATMENT PLANNING Routine 06/15/2025 2:00 PM EDT ORAL HYGIENE INSTRUCTIONS Routine 2024 2:00 PM EDT Dental plaque Subgingival dental calculus UR PERIODONTAL SCALING AND ROOT PLANING - 1 TO 3 TEETH PER QUADRANT Routine 06/15/2025 2:00 PM EDT Dental plaque Subgingival dental calculus LR PERIODONTAL SCALING AND ROOT PLANING - 1 TO 3 TEETH PER QUADRANT Routine 06/15/2025 2:00 PM EDT Dental plaque Subgingival dental calculus PROPHYLAXIS - ADULT Routine 08/11/2024 1 1:00 AM EST Dental calculus Dental plaque Tartar deposits on teeth INTRAORAL - COMPLETE SERIES OF RADIOGRAPHIC IMAGES Routine 08/11/2024 11:00 AM EST COMPREHENSIVE ORAL EVALUATION - NEW OR ESTABLISHED PATIENT Routine 08/11/2024 11:00 AM EST from Last 3 Months or Most Recently Relevant to Health Maintenance [place] FULL [place]MEDICAID[place] ADULT Care Teams Mirror Machine Feeder Relationship Specialty Start Date End Date Yumiko Claros NP [address] [place] [id number] PCP - General Family Medicine 03/30/25
[2025-06-17 12:29] LABS: HIV Num 1 0.06 S/CO (0.00-0.99); ~HepC Num1 0.14 S/CO (0.00-0.79); ~Hepatitis C Antibody Nonreactive (Nonreactive)
[2025-06-18 05:51] LABS: CT PCR Urine NOT DETECTED (Not Detect.); NG PCR Urine NOT DETECTED (Not Detect.)
== END 2025-06-17 10:04 | disposition home or self-care (01) ==
LOC: HO.HHCL 10:03
PROVIDERS: PCP Nurse Practitioner Family; Visit Provider Nurse Practitioner Family
DX: Z00.00 Encounter for general adult medical examination without abnormal findings (principal); Z20.9 Contact with and (suspected) exposure to unspecified communicable disease; Z11.4 Encounter for screening for human immunodeficiency virus [HIV]; Z20.2 Contact with and (suspected) exposure to infections with a predominantly sexual mode of transmission; Z11.3 Encounter for screening for infections with a predominantly sexual mode of transmission; Z11.59 Encounter for screening for other viral diseases
CPT/HCPCS: 36415; 86592; 86803; 87389; 87491; 87591

== ENCOUNTER 2025-08-03 16:37 | Outpatient (REF) | payer MEDICAID, SELFPAY ==
--- OUTSIDE RECORDS SUMMARY | 2025-08-03 09:20 | XMS_ITS | Encounter Summary ---
Author Organization [employer] Address [address] [facility] 7[address] [place] [address] Care Team Providers Care Coding Compliance Specialist Name Role Phone LuisaYumiko santos GOSIA Primary Care Provider [phone] Encounter Details Date Type Department Care Team ([facility] st Contact Info) Description 08/03/2025 9:20 AM EST Office Visit [facility] [address] [place] [address] Ruby Fernandez MD [address] [place] [address] Acute cystitis without hematuria Social History Tobacco Use Types Packs/Day Years [...] Sign Reading Time Taken Comments Blood Pressure 111/62 08/03/2025 9:22 AM EST Pulse 81 08/03/2025 9:22 AM EST Temperature 35.6 C (96 F) 08/03/2025 9:22 AM EST Respiratory Rate 17 08/03/2025 9:22 AM EST Oxygen Saturation 99% 08/03/2025 9:22 AM EST Inhaled Oxygen Concentration - - Weight 53 kg (116 lb 12.8 oz) 08/03/2025 9:22 AM EST Height 152.4 cm (5') 08/03/2025 9:22 AM EST Body Mass Index 22.81 08/03/2025 9:22 AM EST documented in this encounter Progress Notes * Ruby Escobedo MD - 08/03/2025 9:20 AM EST SUBJECTIVE: Mariam Carrero is a 25 y.o. year old female who presents for acute visit . Urinary Tract Infection - Increased urinary frequency and mild abdominal pain began approximately 2 days ago - Burning sensation with urination - Lower abdominal discomfort described as pressure, worsened when relaxing abdominal muscles - Denies back pain during current episode - Denies vomiting during current episode - Mild nausea and some gas Denies vaginal discharge - Similar episodes in the past, previously treated with [id number] medication - Reports previous episode with severe back pain and vomiting - Attempts to stay hydrated and careful with hygiene, but symptoms recur Social History Social History Narrative Not on file Problem List[1] Severe dental caries Non-restorable tooth Alveolitis of jaw Chronic neck and back pain Encounter for immunization Chronic low back pain Exposure to communicable disease Routine general medical examination at a health care facility Ganglion cyst Severe anxiety Family History[2] Review of Systems Constitutional: Negative. HENT: Negative. Respiratory: Negative. Cardiovascular: Negative. Genitourinary: Positive for difficulty urinating, dysuria, frequency, pelvic pain and urgency. Negative for decreased urine volume, dyspareunia, enuresis, flank pain, genital sores, hematuria, menstrual problem, vaginal bleeding, vaginal discharge and vaginal pain. OBJECTIVE: Vitals: 08/03/25 0922 BP: 111/62 BP Location: Left arm Patient Position: Sitting BP Cuff Size: Adult Pulse: 81 Resp: 17 Temp: 96 ??F (35.6 ??C) TempSrc: Temporal SpO2: 99% Weight: 116 lb 12.8 oz (53 kg) Height: 5' (1.524 m) Physical Exam Constitutional: Appearance: Normal appearance. Cardiovascular: Rate and Rhythm: Normal rate and regular rhythm. Pulmonary: Effort: Pulmonary effort is normal. Breath sounds: Normal breath sounds. Abdominal: General: Abdomen is flat. Palpations: Abdomen is soft. Tenderness: There is abdominal tenderness in the suprapubic area. There is no right CVA tenderness or left CVA tenderness. Neurological: Mental Status: She is alert. Follow Up: No follow-ups on file. Medications Ordered Prior to Encounter[3] Problem List Items Addressed This Visit Acute cystitis without hematuria Relevant Medications nitrofurantoin, macrocrystal-monohydrate, (Macrobid) 100 MG capsule Other Relevant Orders POCT Urinalysis (Completed) Culture, Urine, Routine Urinary tract infection: - Urinary tract infection confirmed by positive urinalysis. - Prescribed antibiotic for 7 days. Advised to drink plenty of water, avoid holding urine, avoid tight clothing, and use cotton underwear. Provided hygiene instructions to wipe from front to back after urination. Instructed to take medication as prescribed. Notified that if urine culture shows resistance, antibiotic may be changed. This note was drafted using Ambient (AI) technology. The patient/patient's guardian has been informed and has consented to the use of this technology: Yes [1] Patient Active Problem List Diagnosis Severe dental caries Non-restorable tooth Alveolitis of jaw Chronic neck and back pain Encounter for immunization Chronic low back pain Exposure to communicable disease Routine general medical examination at a health care facility Ganglion cyst Severe anxiety Acute cystitis without hematuria [2] No family history on file. [3] No current outpatient medications on file prior to visit. No current facility-administered medications on file prior to visit. documented in this encounter Plan of Treatment Upcoming Encounters Date Type Department Care Team (Late st Contact Info) Description 12/22/2025 10:15 AM EDT Office Visit [facility] [address] [place] [address] Cathi Shaw Scheduled Orders Name Type Priority Associated Diagnoses Orde r Schedule Culture, Urine, Routine Microbiology Routine Acute cystitis without hematuria Expected: 08/03/2025 (Approximate), Expires: 08/03/2026 documented as of this encounter Procedures Procedure Name Priority Date/Time Associated Diagnosis Comments POCT URINALYSIS DIPSTICK Routine 08/03/2025 9:31 AM EST Acute cystitis without hematuria documented in this encounter Results * (ABNORMAL) POCT Urinalysis (08/03/2025 9:31 AM EST) Color, UA Yellow Comment:dark yellow Clarity, UA Clear Glucose, UA 2+ 125++ Comment:100 Bilirubin, UA Trace Comment:small Ketones, UA Positive Spec Grav, UA 1.030 Blood, UA Positive(A) Negative, None Detected pH, UA 6.0 Protein, UA 3+ 500+++ Comment:30 Urobilinogen, UA 1.0 Leukocytes, UA Trace Negative, Rare, Trace Nitrite, UA Positive(A) Negative, None Detected Appearance, UA clear QC Media Lot # [id number] Lot# Expiration Date [id number] Urine (Urine, Random) 08/03/2025 9:31 AM EST us Ruby Escobedo MD POINT OF CARE TEST EN TER/EDIT ORDERABLES Final Result documented in this encounter Visit Diagnoses Diagnosis Acute cystitis without hematuria documented in this encounter Additional Health Concerns Assessment Noted Time PHQ-9 Depression Total Score: 11 025 9:12 AM EDT documented as of this encounter Care Teams Coding Compliance Specialist Relationship Specialty Start Date End Date Yumiko Claros NP [address] [place] [address] PCP - General Family Medicine 03/30/25 documented as of this encounter
--- OUTSIDE RECORDS SUMMARY | 2025-08-04 04:53 | XMS_ITS | Encounter Summary ---
Author Organization [employer] Address [address] [facility] [address] [place] [address] Care Team Providers Care Billing Control Clerk Name Role Phone Yumiko Claros GOSIA Primary Care Provider [phone] Encounter Details Date Type Department Care Team (Latest Contact Info) Description 08/03/2025 Travel Social History Tobacco Use Types Packs/Day [...] PM EDT documented as of this encounter Plan of Treatment Upcoming Encounters Date Type Department Care Team (Late st Contact Info) Description 12/22/2025 10:15 AM EDT Office Visit [facility] [address] [place] [address] Cathi Shaw documented as of this encounter Visit Diagnoses Not on filedocumented in this encounter Additional Health Concerns Assessment Noted Time PHQ-9 Depression Total Score: 11 025 9:12 AM EDT documented as of this encounter Care Teams Billing Control Clerk Relationship Specialty Start Date End Date Yumiko Claros NP [address] [place] [address] PCP - General Family Medicine 03/30/25 documented as of this encounter
--- OUTSIDE RECORDS SUMMARY | 2025-08-04 04:53 | XMS_ITS | Encounter Summary ---
Author Organization [employer] Address [address] [facility] [address] [place] [address] Care Team Providers Care Trolley Wire Installer Name Role Phone Coy Claudette GYM MANAGER Primary Care Provider [phone] Yumiko Claros GYM MANAGER Primary Care Provider [phone] Reason for Visit * Reason Onset Date Comments running late 12/22/2024 Encounter Details Date Type Department Care Team (Late st Contact Info) Description 12/22/2024 Telephone [facility] [address] [place] [address] Michell Ugarte, DDS [address] [place] [address] running late Social History Tobacco Use Types [...] Description 12/22/2025 10:15 AM EDT Office Visit [facility] [address] [place] [address] Cathi Shaw documented as of this encounter Visit Diagnoses Not on filedocumented in this encounter Care Teams Trolley Wire Installer Relationship Specialty Start Date End Date Claudette Cespedes NP [address] [place] [address] PCP - General Family Medicine 11/24/24 03/29/25 Yumiko Claros NP [address] [place] [address] PCP - General Family Medicine 03/30/25 documented as of this encounter
--- OUTSIDE RECORDS SUMMARY | 2025-08-04 04:53 | XMS_ITS | Encounter Summary ---
Author Organization [employer] Address [address] [facility] [address] [place] [address] Care Team Providers Care Information Manager Name Role Phone Tacosdelgado Claudette [employer]S Primary Care Provider [phone] Yumiko Claros [employer] Primary Care Provider Reason for Visit * Reason Onset Date Comments appt 06/29/2024 Encounter Details Date Type Department Care Team ([facility] st Contact Info) Description 06/29/2024 Telephone [facility] [address] [place] [address] Jigar Fair DDS [address] [place] [address] appt Social History Tobacco Use Types Packs/Day [...] for extraction. Patient has been informed that apptis active requested and she will get a call from office to schedule appt. documented in this encounter Plan of Treatment Upcoming Encounters Date Type Department Care Team (Late st Contact Info) Description 12/22/2025 10:15 AM EDT Office Visit [facility] [address] [place] [address] Cathi Shaw documented as of this encounter Visit Diagnoses Not on filedocumented in this encounter Care Teams Information Manager Relationship Specialty Start Date End Date Claudette Cespedes NP [address] [place] [address] PCP - General Family Medicine 11/24/24 03/29/25 Yumiko Claros NP [address] [place] [address] PCP - General Family Medicine 03/30/25 documented as of this encounter
--- OUTSIDE RECORDS SUMMARY | 2025-08-04 04:53 | XMS_ITS | Clinical Summary ---
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 nitrofurantoin, macrocrystal-mo nohydrate, (Macrobid) 100 MG capsuleIndicati ons:Acute cystitis without hematuria Take 1 capsule (100 mg) by mouth 2 times daily for 7 days. 14 capsule 08/03/2025 10:11 AM EST 08/03/2025 5 Active Active Problems Problem Noted Date Diagnosed Date Acute cystitis without hematuria 08/03/2025 Severe anxiety 06/22/2025 Assessment & Plan (06/23/2025 8:54 AM EDT): During [facility] Consult Mariam presenting with excessive worry/anxiety, difficulty controlling worry, and anxiety/worry associated to difficulty concentrating and/or mind going blank and Difficulty completing tasks/jumping between tasks or activities, Easily distracted, Difficulty being still, and Talkative; for a period of 6-12 mo, for most or all symptoms in the context of family issues and illness or family illness. Pt has been experiencing anxiety and unable to control it on her own. [place] [facility] four years ago. Currently she lives with her boyfriend and her dog. Anxiety sxs overlap ADHD (no history of either diagnosis). More information needed to rule out ADHD diagnosis. Pt not interested in starting medication at this time. Chronic neck and back pain 06/17/2025 Assessment & Plan (06/17/2025 6:48 PM EDT): Orders: Referral to Physical Therapy; Future Encounter for immunization 06/17/2025 Assessment & Plan (06/17/2025 6:48 PM EDT): Orders: FLU VACCINE TRIVALENT [id number] (Fluarix) 19 yrs + Chronic low back pain 06/17/2025 Assessment & Plan (06/17/2025 6:48 PM EDT): Orders: Referral to Physical Therapy; Future Exposure to communicable disease 06/17/2025 Assessment & Plan (06/17/2025 6:48 PM EDT): Orders: HIV-1/2 Antigen and Antibodies, Fourth Generation, with Reflexes; Future Hepatitis C Antibody with Reflex to HCV, RNA, Quantitative, Real-Time PCR; Future RPR (Monitor) with Reflex to Titer; Future Chlamydia/N. Gonorrhoeae, PCR, Urine Routine general medical exam ination at a health care facility 06/17/2025 Assessment & Plan (06/17/2025 6:48 PM EDT): Orders: Referral to Behavioral Health; Future HIV-1/2 Antigen and Antibodies, Fourth Generation, with Reflexes; Future Hepatitis C Antibody with Reflex to HCV, RNA, Quantitative, Real-Time PCR; Future RPR (Monitor) with Reflex to Titer; Future Chlamydia/N. 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 Date Type Department Care Team Description 08/03/2025 9:20 AM EST Office Visit [facility] WALK-IN [address] [id number] Ruby Fernandez MD Acute cystitis without hematuria 08/03/2025 Travel 07/11/2025 Telephone [facility] MEDICINE [address] [place] [phone] Yumiko Claros NP SEP RECALL 06/27/2025 Results Follow-Up [address] [id number] Yumiko Claros NP Chlamydia/N. Gonorrhoeae, PCR, Urine, HIV-1/2 Antigen and Antibodies, Fourth Generation, with Reflexes, Hepatitis C Antibody with Reflex to HCV, RNA, Quantitative, Real-Time PCR, RPR (Monitor) with Reflex to Titer 06/17/2025 9:00 AM EDT Office Visit [facility] MED[facility]INE [address] [place] [phone] Yumiko Clraos NP Routine general medical examination at a health care facility (Primary Dx); Exposure to communicable disease; Encounter for immunization; Chronic low back pain, unspecified back pain laterality, unspecified whether sciatica present; Chronic neck and back pain; Ganglion cyst 06/17/2025 Travel 06/16/2025 Telephone [facility] MED[facility] [address] [place] [phone] Yumiko Claros NP CHARTPREP 06/15/2025 2:00 PM EDT Office Visit [facility] ADULT DENTAL [address] [place] [phone] Cathi Shaw Dental plaque (Primary Dx); Subgingival dental calculus 06/10/2025 Patient Outreach [facility] PEDS [address] [place], [place] [phone] Yumiko Claros NP Pre-visit Planning (SDOH unable [...] Mass Index 22.81 08/03/2025 9:22 AM EST Plan of Treatment Upcoming Encounters Date Type Department Care Team (Late st Contact Info) Description 12/22/2025 10:15 AM EDT Office Visit [facility] ADULT DENTAL [address] [place] [address] Cathi Shaw Health Maintenance Due Date Last Done Comments Family Planning (PISQ) 2014 HPV Vaccines (1 - 3-dose series) 2014 DTaP/Tdap/Td Vaccines (1 - Tdap) 2018 Hepatitis B Vaccines (1 of 3 - 19+ 3-dose series) 2018 Pap Smear 2020 Dental Oral Exam 02/09/2025 08/11/2024 Dental Prophylaxis 02/09/2025 08/11/2024 COVID-19 Vaccine ( - 2024-2 6 season) 2025 Dental X-Ray: Bitewings 08/12/2025 08/11/2024 Depression Monitoring 12/16/2025 06/17/2025 , 06/17/2025 Alcohol/Substance Use Screening 06/17/2026 06/17/2025 Disability Screening 06/17/2026 06/17/2025 SDOH Screening 06/17/2026 06/17/2025 Tobacco Screening 06/17/2026 06/17/2025 Dental X-Ray: Full Mouth 08/12/2027 08/11/2024 Zoster Vaccines (1 of 2) 2049 RSV Patients and Patients Aged 60 years or older (1 - 1-dose 75+ series) 2074 HIV Screening Completed 06/17/2025 Hepatitis C Screening Completed 06/17/2025 Influenza Vaccine Completed 06/17/2025 HIB Vaccines Aged [...] 9:31 AM EST Acute cystitis without hematuria RPR (MONITOR) W/REFL TITER Routine 06/17/2025 10:29 AM EDT Routine general medical examination at a health care facility Exposure to communicable disease HEPATITIS C AB W/REFL TO HCV RNA, QN, PCR Routine 06/17/2025 10:29 AM EDT Routine general medical examination at a health care facility Exposure to communicable disease HIV 1/2 ANTIGEN/ANTIBODY, FOURTH GENERATION W/RFL Routine 06/17/2025 10:29 AM EDT Routine general medical examination at a health care facility Exposure to communicable disease CHLAMYDIA/TRICHOMONAS /NEISSERIA GONORRHOEAE, PCR, URINE Routine 06/17/2025 9:51 AM EDT Routine general medical examination at a health care facility Exposure to communicable disease CASE PRESENTATION, DETAILED AND EXTENSIVE TREATMENT PLANNING Routine 06/15/2025 2:00 PM EDT ORAL HYGIENE INSTRUCTIONS Routine 06/15/2025 2:00 PM [...] or Most Recently Relevant to Health Maintenance Results * (ABNORMAL) POCT Urinalysis (08/03/2025 9:31 [...] Media Lot # [id number] Lot# Expiration Date Urine (Urine, Random) 08/03/2025 9:31 AM EST us Ruby Escobedo MD POINT OF CARE TEST EN TER/EDIT ORDERABLES Final Result * Hepatitis C Antibody with Reflex to HCV, RNA, Quantitative, Real-Time PCR (06/17/2025 10:29 AM EDT) Pathologist [facility] Hepatitis C Antibody Nonreactive Nonreactive [facility] Comment:Antibodies to HCV no t detected; does not exclude early acuteHCV infection. Blood Venous blood specimen / Unknown 06/17/2025 10:29 AM EDT 06/17/2025 11:26 AM EDT us Yumiko Claros NP LAB BLOOD ORDERABLES Final Resul t [facility] [address] [place] [phone] * RPR (Monitor) with Reflex to??Titer (06/17/2025 10:29 AM EDT) RPR (Monitor) w/Refl Titer NON-REACTI VE NON-REACT JAMES [facility] Comment:THIS TEST WAS PERFOR MED AT:[id number] [place] [phone] MCKEE MD Rapid Plasma Reagin Ab Titer TNP [facility] Blood Venous blood specimen / Unknown 06/17/2025 10:29 AM EDT 06/17/2025 11:26 AM EDT Yumiko Claros NP LAB BLOOD ORDERABLES Final Resul t Performing Organization Address [facility] Co de Phone Number [facility] [address] [place] [phone] [phone] * HIV-1/2 Antigen and Antibodies, Fourth Generation, with Reflexes (06/17/2025 10:29 AM EDT) HIV AB/AG Nonreactive Nonreactive [facility] Comment:HIV-1 p24 Ag and/or HIV-1/HIV-2 Ab not detected.A test result that is nonreactive does not exclude thepossibility of exposure to or infection with HIV-1 and/orHIV-2. Nonreactive results in this assay for individualswith prior exposure to HIV-1 and/or HIV-2 may be due toantigen and antibody levels that are below the limit ofdetection of this assay.The Admeld HIV Ag/Ab Combo assay result andsupplemental assay results should be interpreted inconjunction with the patient's clinical presentation,history and other laboratory results. If the results areinconsistent with clinical evidence, additional testing issuggested to confirm the result. Blood Venous blood specimen / Unknown 06/17/2025 10:29 AM EDT 06/17/2025 11:26 AM EDT us Yumiko Claros NP LAB BLOOD ORDERABLES Final Resul t Performing Organization Address City/[facility]/ZIP Co de Phone Number [facility] [address] [place] [address] [phone] * Chlamydia/N. Gonorrhoeae, PCR, Urine (06/17/2025 9:51 AM EDT) CT PCR, Urine NOT DETECTED Not Detect. [facility] Comment:A not detected test result does not exclude the possibilityof infection because test results can be affected byimproper specimen collection, concurrent antibiotic therapy,or the number of organisms in the specimen which may bebelow the sensitivity of the test. As with many diagnostictests, results from the Xpert CT/NG assay should beinterpreted in conjunction with other laboratory andclinical data available to the clinician.The Xpert CT/NG assay should not be used for the evaluationof suspected sexual abuse or for other medico-legalindications. Additional testing is recommended in anycircumstance when false positive or false negative resultscould lead to adverse medical, social or psychologicalconsequences. NG PCR, Urine NOT DETECTED Not Detect. [facility] Comment:A not detected test result does not exclude the possibilityof infection because test results can be affected byimproper specimen collection, concurrent antibiotic therapy,or the number of organisms in the specimen which may bebelow the sensitivity of the test. As with many diagnostictests, results from the Xpert CT/NG assay should beinterpreted in conjunction with other laboratory andclinical data available to the clinician.The Xpert CT/NG assay should not be used for the evaluationof suspected sexual abuse or for other medico-legalindications. Additional testing is recommended in anycircumstance when false positive or false negative resultscould lead to adverse medical, social or psychologicalconsequences. Urine (Urine, Random) 06/17/2025 9:51 AM EDT 06/17/2025 5:22 PM EDT us Yumiko Claros NP LAB URINE ORDERABLES Final Resul t [facility] [address] [place] [phone] from Last 3 Months Insurance [employer] F[employer] Care Teams Fig Bar Machine Operator Relationship Specialty Start Date End Date Yumiko Claros NP [address] [place] [phone] PCP - General Family Medicine 03/30/25
== END 2025-08-03 16:38 | disposition home or self-care (01) ==
LOC: HO.HHCLNP 16:37
PROVIDERS: Visit Provider Internal Medicine
DX: R30.9 Painful micturition, unspecified (principal)
CPT/HCPCS: 87086